=== PATIENT | female | born 1990 | race Hispanic/Latino ===

== ENCOUNTER 2025-04-04 20:59 | Emergency (ER) | payer BC, OTHER ==
[~2025-04-04] VITALS: Ht 152.4 cm; Wt 58.1 kg
[~2025-04-04 20:59] MED LIST: TRI-SPRINTEC1 EACH PO
[2025-04-04] MEDS: DEXAMETHASONE SOD PHOS INJ 4 MG/ML SDV IM ONE (22:02)
[2025-04-04] MEDS: IBUPROFEN 600 MG TAB PO STA (22:02)
[2025-04-04] MEDS: FAMOTIDINE 20 MG TAB PO ONE (22:02)
[2025-04-04] MEDS ORDERED: PREDNISONE50 MG PO (23:48)
[2025-04-04] MEDS ORDERED: CETIRIZINE HCL10 MG PO (23:48)
[2025-04-04] MEDS ORDERED: BENADRYL25 M1 PO (23:48)
[2025-04-04 23:58] VITALS: PULSE 81; RESP 17; TEMP 98.6
[2025-04-05] MEDS: DEXAMETHASONE SOD PHOS 10 MG/1 ML VIAL IM ONE
[2025-04-05] MEDS ORDERED: EPINEPHRIN0.3 MG/0.3 IM (00:15)
[2025-04-05 00:35] VITALS: BP 114/68; PULSE 88; RESP 17; TEMP 98.8; O2SAT 99
== END 2025-04-05 00:24 | disposition home or self-care (01) ==
LOC: FSED 21:04
DX: R21 Rash and other nonspecific skin eruption (principal); T78.40XA Allergy, unspecified, initial encounter; F32.A Depression, unspecified
CPT/HCPCS: 99283; J1100 ×2